=== PATIENT | male | born 1960 | race Caucasian/White ===

== ENCOUNTER 2018-10-08 16:45 | Observation (INO) ==
[2018-10-08] MEDS ORDERED: NS 1,000 ML ONE (16:57)
[2018-10-08] MEDS ORDERED: ASPIRIN ONE (16:57)
[2018-10-08] MEDS ORDERED: NS 1,000 ML IV ONE (17:07)
[2018-10-08] MEDS ORDERED: ASPIRIN PO ONE (17:07)
[2018-10-08 17:27] LABS: BASO# 0.03 X1000 (0.0-0.2); BASO% 0.3 % (0.0-0.8); EOS# 0.15 X1000 (0.0-0.7); EOS% 1.3 % (0.0-10.0); HEMATOCRIT 50.1 % (42.0-52.0); HEMOGLOBIN 17.7 g/dL (14.0-18.0); IMM GRAN# 0.08 X1000 (0.0-0.04); IMM GRAN% 0.7 % (0.0-0.5); LYMPH# 2.71 X1000 (1.2-3.4); LYMPH% 23.9 % (20.5-51.1); MCH 31.9 PG (27-31); MCHC 35.3 g/dL (33-37); MCV 90.3 FL (81-99); MONO# 0.83 X1000 (0.11-0.59); MONO% 7.3 % (1.7-9.3); MPV 11.1 FL (7.4-10.4); NEUT# 7.53 X1000 (1.4-6.5); NEUT% 66.5 % (42.2-75.2); PLT 176 X1000 (130-400); RBC 5.55 XMIL (4.7-6.1); RDW 13.3 % (11.5-14.5); WBC 11.33 X1000 (4.8-10.8)
[2018-10-08 17:31] LABS: INR 0.91; PROTIME 12.7 Seconds (11.0-16.0); PTT 30.7 Seconds (22.3-41.8)
--- NOTE | 2018-10-08 17:32 | Diag Imaging Result Doc PS360 ---
EXAM: CT HEAD W/O CONTRAST 10/08/2018 HISTORY: CVA TECHNIQUE: This exam was performed using automated exposure control, adjustment of mA or kV according to patient size, and/or use of iterative reconstruction technique. COMMENT: There are no previous studies available for comparison. There is a lacune in the anterior left putamen and another in the right basal ganglia. There are patchy ill-defined lucencies in the periventricular white matter adjacent to both frontal horns. There is no evidence of bleed mass effect or abnormal extra-axial fluid collection. IMPRESSION: No evidence of acute intracranial disease. Electronically signed by Jhonny Lara 10/08/2018 5:29 PM
[2018-10-08 17:35] LABS: AGAP 13; BUN 16 mg/dL (8-22); CALCIUM 9.1 mg/dL (8.8-10.2); CHLORIDE 102 mmol/L (98-107); COSMO 277; CREATININE 0.9 mg/dL (0.7-1.2); ESTIMATED GFR > 60; GLUCOSE 130 mg/dL (70-104); MAGNESIUM 1.4 mg/dL (1.5-2.7); POTASSIUM 4.3 mmol/L (3.5-5.1); SODIUM 137 mmol/L (136-145); TCO2 22 mmol/L (25-35)
[2018-10-08] MEDS ORDERED: NITROGLYCERIN TOP ONE (18:32)
[2018-10-08] MEDS ORDERED: TYLENOL PO ONE (18:33)
--- NOTE | 2018-10-08 18:40 | PROVIDER DOCUMENTATION ---
This chart was entered by Wanda Ash Scribe, acting as scribe for Sawyer Bradford MD. HPI-Neurological Disorder - General Chief Complaint: Stroke-Like Symptoms Stated Complaint: SOB, CANT TALK Time Seen by Provider: 10/08/18 17:05 Source: patient, family () Allergies/Adverse Reactions: Patient Allergies Allergy/AdvReac Type Severity Reaction Status Date / Time Penicillins Allergy RASH Verified 06/09/14 18:04 Home Medications: Home Medication List Medication Instructions Recorded Confirmed Last Taken Type Acetaminophen with Codeine 1 each PO Q6H PRN PRN #20 tablet 06/09/14 Unknown Rx [Tylenol with Codeine #3 Tablet] Aspirin 81 mg PO DAILY 06/09/14 06/09/14 06/09/14 History Atorvastatin Calcium [Lipitor] 80 mg PO DAILY 06/09/14 06/09/14 06/09/14 History Canagliflozin [Invokana] 100 mg PO DAILY 06/09/14 06/09/14 06/09/14 History Cephalexin [Keflex] 500 mg PO 4XDAY #40 capsule 06/09/14 Unknown Rx Fenofibrate Nanocrystallized 145 mg PO DAILY 06/09/14 06/09/14 06/09/14 History [Tricor] Nebivolol HCl [Bystolic] 10 mg PO DAILY 06/09/14 06/09/14 06/09/14 History Sulfamethoxazole/Tmp D.s. [Septra 1 each PO BID #20 tablet 06/09/14 Unknown Rx Ds] - History of Present Illness-Neuro Nature of Presenting Problem: 58 yom presents to ED c/o right arm weakness, slurred speech, head feels 'funny, SOB and can't concentrate since about 3:30pm. Pt is at bedside and states pt came in from outside and said he felt funny and then the symptoms started. Pt has a hx of DM, HTN, VA, RA, COPD and Lupus. Dr. Ramirez is pt PCP. Review of Systems - Adult - REVIEW OF SYSTEMS - ADULT Constitutional: reports: see HPI, fatique. denies: chills, fever Eyes: reports: no symptoms reported Ears, Nose, Mouth & Throat: reports: no symptoms reported Cardiovascular: reports: no symptoms reported Respiratory: reports: see HPI, shortness of breath. denies: cough Gastrointestinal: reports: no symptoms reported Genitourinary: reports: no symptoms reported Musculoskeletal: reports: no symptoms reported Integumentary: reports: no symptoms reported Neurological: reports: see HPI, dizziness/vertigo, headache/migraines, numbness, slurred speech, tremors Psychiatric: reports: no symptoms reported Endocrine: reports: no symptoms reported Hematologic/Lymphatic: reports: no symptoms reported Allergic/Immunologic: reports: no symptoms reported All Other Systems: Reviewed and Negative Past History - Adult - PAST MEDICAL HISTORY-ADULT Review of Records: reports: Nursing Assessment Review, Medications Reviewed, Social history reviewed & non-contributory. Major Childhood Illnesses: reports: denies history Cardiovascular: reports: HTN, VA Respiratory: reports: COPD Gastrointestinal: reports: denies history Obstetrical/Gynecological: reports: denies history Genitourinary: reports: denies history Musculoskeletal: reports: denies history Neurological: reports: denies history Endocrine/Immune: reports: Diabetes Other Conditions: reports: denies history - PRIOR SURGERIES/PROCEDURES Surgical/Procedure History: reports: cardiac stent, joint replacement - IMMUNIZATION STATUS Childhood Immunizations: See Nurse Assessment Flu Vaccine: See Nurse Assessment - FAMILY HISTORY Family History: reviewed, not pertinent Physical Exam- Neurological - Physical Exam-Neuro Initial Vital Signs Reviewed: Yes General Appearance: alert, mild distress Eye Exam: bilateral eye: normal inspection, PERRL, EOMI HENMT: normocephalic/atraumatic, moist mucous membranes, normal ENT inspection. negative: angioedema Head Injury: no evidence of injury. negative: active bleeding Neck: non-tender, full range of motion, supple, normal inspection. negative: Brudzinski's sign, carotid bruit Respiratory: chest non-tender, lungs clear, normal breath sounds, no pleuratic chest pain, no respiratory distress, no accessory muscle use. negative: crackles, rales, rhonchi Cardiovascular: normal peripheral pulses, regular rate, rhythm, no edema, no gallop, no JVD, no murmur. negative: bradycardia, tachycardia Abdominal Exam: normal bowel sounds, non tender, soft, no organomegaly, no pulsatile mass. negative: rigid, rebound, tenderness Lymphatic: no adenopathy. negative: striations Extremity: normal range of motion, normal inspection. negative: deformity Neurologic: surveillance system monitor II-XII nml as tested, grossly normal, motor weakness Integumentary: normal color, normal turgor, warm/dry. negative: diaphoresis, jaundice Psych/Mental Status: normal mood/affect, other (ORINTED TO PERSON AND PLACE BUT NOT TIME INITALLY, LETHARGIC RESPONSE TO QUESTIONS BUT MINIMAL SLURRED SPEECH.) Progress - PLAN OF CARE/RESULTS Progress/Plan/Lab Results: Vital Signs - 8 hr 10/08/18 16:53 Pulse Rate 82 Respiratory Rate 18 Blood Pressure 202/116 O2 Sat by Pulse Oximetry 93 L Laboratory Results - last 24 hr 10/08/18 10/08/18 10/08/18 16:54 16:56 16:56 WBC 11.33 H RBC 5.55 Hgb 17.7 Hct 50.1 MCV 90.3 MCH 31.9 H MCHC 35.3 RDW Std Deviation 13.3 Plt Count 176 MPV 11.1 H Immature Gran % (Auto) 0.7 H Neut % (Auto) 66.5 Lymph % (Auto) 23.9 Monroe % (Auto) 7.3 Eos % (Auto) 1.3 Baso % (Auto) 0.3 Immature Gran # (Auto) 0.08 H Neut # (Auto) 7.53 H Lymph # (Auto) 2.71 Monroe # (Auto) 0.83 H Eos # (Auto) 0.15 Baso # (Auto) 0.03 PT INR PTT (Actin FS) Sodium 137 Potassium 4.3 Chloride 102 Carbon Dioxide 22 L Anion Gap 13 BUN 16 Creatinine 0.9 Estimated GFR/1.73 m2 > 60 BUN/Creatinine Ratio 18 Glucose 130 H POC Glucose 119 H Calculated Osmolality 277 Calcium 9.1 Magnesium 1.4 L 10/08/18 16:56 WBC RBC Hgb Hct MCV MCH MCHC RDW Std Deviation Plt Count MPV Immature Gran % (Auto) Neut % (Auto) Lymph % (Auto) Monroe % (Auto) Eos % (Auto) Baso % (Auto) Immature Gran # (Auto) Neut # (Auto) Lymph # (Auto) Monroe # (Auto) Eos # (Auto) Baso # (Auto) PT 12.7 INR 0.91 PTT (Actin FS) 30.7 Sodium Potassium Chloride Carbon Dioxide Anion Gap BUN Creatinine Estimated GFR/1.73 m2 BUN/Creatinine Ratio Glucose POC Glucose Calculated Osmolality Calcium Magnesium Orders Category Date Time Status Cardiac Monitoring DIRECTED Care 10/08/18 17:05 Active Finger Stick Blood Sugar (ED) DIRECTED Care 10/08/18 17:05 Active Saline Loc NOW Care 10/08/18 17:[address] HEAD W/O CONTRAST [CT] Stat Exams 10/08/18 17:06 Completed BMP [BASIC METABOLIC PANEL] [CHEM] Stat Lab 10/08/18 16:56 Completed CBC WITH ELECTRONIC DIFF [HEME] Stat Lab 10/08/18 16:56 Completed LACTATE, PLASMA [CHEM] Stat Lab 10/08/18 18:05 Received MAGNESIUM [CHEM] Stat Lab 10/08/18 16:56 Completed PROTIME WITH INR [COAG] Stat Lab 10/08/18 16:56 Completed PTT [COAG] Stat Lab 10/08/18 16:[address] W/POSS RFLX CULT [URINALYSIS] Stat Lab 10/08/18 18:32 Ordered 0.9% Sodium Chloride Inj [Ns] 1,000 ml Med 10/08/18 16:57 Discontinued .ROUTE As directed 0.9% Sodium Chloride Inj [Ns] 1,000 ml Med 10/08/18 17:07 Discontinued IV 999 mls/hr Acetaminophen [Tylenol] Med 10/08/18 18:33 Once 650 mg PO NOW ONE Aspirin Med 10/08/18 16:57 Discontinued 325 mg .ROUTE .STK-MED ONE Aspirin Med 10/08/18 17:07 Discontinued 325 mg PO NOW ONE Nitroglycerin Med 10/08/18 18:32 Once 1 inch TOP NOW ONE EKG [EKG] Stat Ther 10/08/18 17:06 Ordered Result Diagrams: 10/08/18 16:56 10/08/18 16:56 - REASSESSMENT Reassessment #2 Time Reassessed: 18:33 Status: improving (NOW NOW DEFICITS, NO LURRED SPEECH, GOOD STRENGTH RIGHT HAND/ARM, SL H/S BP UP; 187/118: ORDER NITRO, TYLENOL) Reassessment #3 Status: improving (ON ARRIVAL AND THRYU STAY, NOT A tPA CANDITATE STEADILY IMPROVING OF MILD NEURO DEFICIT.) - EKG 1 Time of EKG reading by physician:: 17:05 EKG Read and Signed by:: Sawyer Bradford EKG Interpretation (*Must complete 3 of following elements*): Abnormal (possible left atrial enlargement, cannot rule out inferior infarct, age undetermined) QRS: normal ST Wave: normal - CONSULTS/PCP/HOSPITALIST Notification #1 *Consult/PCP/Hospitalist*: DR OLVERA Time Discussed: 17:30 Consult Disposition: Admit Departure - Departure Date of Disposition Decision: 10/08/18 Time of Disposition Decision: 18:34 DIAGNOSIS: TIA (transient ischemic attack), Hypertension Disposition: ADMITTED INPATIENT 09 Certified Medical Emergency: Emergent Condition: Stable Referrals and Follow-Ups: Cj Olvera MD [Primary Care Provider] - - Critical Care Note This patient required my direct & personal management of CC.: No Attestation - Physician/ GEMA Attestation Patient care was provided by Advanced Practice Provider:: No The physician spent face to face time with patient:: Yes Advanced Practice Provider documentation review:: Supervising physician onsite and consulted in the evaluation and care of this patient. The physician did have a face to face encounter with the patient. - NIH Stroke Scale NIH Type: Initial Evaluation Level of Consciousness: 0-Alert LOC Questions (ask month and age): 0-Answers Both Correctly LOC Commands (ask to open & close eyes;make a fist, let go): 0-Obeys Both Correctly Best Gaze (horizontal eye movement): 0-Normal Visual (use finger movement, counting or visual threat): 0-No Visual Loss Facial Palsy (show teeth or raise eyebrows & close eyes tght: 0-Symmetrical Movement Motor Function-left arm: 0-Normal Motor Function-right arm: 1-Drift Motor Function-left le-Normal Motor Function-right le-Normal Limb Ataxia([id number], or heel to timmons): 0-No Ataxia Sensory(pin prick to face,arms,trunk,legs-compare side/side): 0-No Ataxia Best Language(name item/read sentence.Ex-Down to Earth): 0-No Aphasia Dysarthria(Pt read words or say words Ex.Mama,Tip-Top,Thanks: 1-Mild-Mod Slurr ing Words Extinction and Inattention: 1-Partial Neglect NIH Total Score: 3 This chart was documented by the indicated scribe, (Wanda Ash Scribe) and accurately reflects the services I performed and decisions made by me, Sawyer Bradford MD, as attested by the provider's signature.
[2018-10-08 19:03] LABS: BILIRUBIN URINE NEGATIVE (NEGATIVE); BLOOD URINE NEGATIVE (NEGATIVE); CLARITY CLEAR (CLEAR); COLOR YELLOW; KETONE URINE NEGATIVE (NEGATIVE); LEUKOCYTES URINE NEGATIVE (NEGATIVE); NITRITE URINE NEGATIVE (NEGATIVE); PROTEIN URINE 2+(100 mg/dL) mg/dL (NEGATIVE); UROBILINOGEN URINE NORMAL
--- NOTE | 2018-10-08 19:10 | EKG Report ---
Test Performed on : 10/08/2018 5:03:10 PM Test Reason : CVA Blood Pressure : / mmHG Vent. Rate : 079 BPM Atrial Rate : 079 BPM P-R Int : 156 ms QRS Dur : 102 ms QT Int : 390 ms P-R-T Axes : 045 045 125 degrees QTc Int : 447 ms Normal sinus rhythm. Possible Left atrial enlargement Cannot rule out Inferior infarct , age undetermined Abnormal ECG No previous ECGs available Unconfirmed Result
[2018-10-08 19:11] LABS: URINE SOURCE CLEAN CATCH
[2018-10-08 19:12] LABS: URINE EPITHELIAL CELLS <10 /HPF (<10); URINE RBC <10 /HPF (<10); URINE WBC <10 /HPF (<10)
[2018-10-08 19:13] LABS: URINE BACTERIA NEGATIVE /HFP; URINE CAST NONE SEEN /LPF; URINE CRYSTAL NONE SEEN /HPF; URINE YEAST NONE SEEN /HPF
[2018-10-08] MEDS ORDERED: TYLENOL PO PRN (22:26)
[2018-10-08] MEDS ORDERED: ZOFRAN IV PRN (22:26)
[2018-10-08] MEDS ORDERED: MAGNESIUM SULFATE 2 GM/S.W.I. 2 GM/50 ML IVPB IV ONE (22:27)
[2018-10-08] MEDS: NS 1,000 ML IV SCH (23:02)
[2018-10-09] MEDS ORDERED: LABETALOL ONE (02:08)
[2018-10-09] MEDS ORDERED: LABETALOL IV ONE (02:09)
[2018-10-09] MEDS: NS 1,000 ML IV SCH (05:52)
[2018-10-09] MEDS ORDERED: DIPHENHYDRAMINE CIT PO PRN (06:21)
[2018-10-09] MEDS ORDERED: IBUPROFEN PO PRN (06:21)
[2018-10-09] MEDS ORDERED: BENADRYL PO PRN (06:26)
[2018-10-09] MEDS ORDERED: MOTRIN PO PRN (06:26)
[2018-10-09] MEDS ORDERED: PROTONIX PO SCH (07:00)
[2018-10-09 07:17] LABS: HEMATOCRIT 48.3 % (42.0-52.0); HEMOGLOBIN 16.5 g/dL (14.0-18.0); MCH 31.1 PG (27-31); MCHC 34.2 g/dL (33-37); MCV 91.1 FL (81-99); MPV 11.4 FL (7.4-10.4); RBC 5.3 XMIL (4.7-6.1); RDW 13.2 % (11.5-14.5); WBC 8.54 X1000 (4.8-10.8)
[2018-10-09] MEDS: HUMALOG (PARKWAY) SUBQ SCH ×3 (08:15→18:52)
[2018-10-09 08:19] LABS: AGAP 13; ALBUMIN 3.7 g/dL (3.5-5.0); ALKALINE PHOSPHATASE 92 U/L (32-122); BUN 11 mg/dL (8-22); CALCIUM 8.8 mg/dL (8.8-10.2); CHLORIDE 102 mmol/L (98-107); COSMO 278; CREATININE 0.8 mg/dL (0.7-1.2); ESTIMATED GFR > 60; GLUCOSE 115 mg/dL (70-104); GOT 13 U/L (10-34); GPT 9 U/L (10-44); POTASSIUM 3.5 mmol/L (3.5-5.1); SODIUM 139 mmol/L (136-145); TCO2 24 mmol/L (25-35); TOTAL PROTEIN 6.9 g/dL (6.3-8.3)
[2018-10-09 08:30] LABS: CHOLESTEROL 274 mg/dL (0-200); HDL 35 mg/dL (35-55); LDL 179 mg/dL; TRIGLYCERIDES 301 mg/dL (39-160); VLDL 60 mg/dL
[2018-10-09] MEDS ORDERED: NON-FORMULARY MED PO SCH (09:00)
[2018-10-09] MEDS ORDERED: NON-FORMULARY MED (Dapagliflozin Propanediol [Farxiga] 10 MG) PO SCH (09:00)
[2018-10-09] MEDS ORDERED: NORVASC PO SCH (09:00)
[2018-10-09] MEDS ORDERED: PLAVIX PO SCH (09:00)
[2018-10-09] MEDS ORDERED: ASPIRIN PO SCH (09:00)
[2018-10-09] MEDS ORDERED: MONOPRIL PO SCH (09:00)
[2018-10-09] MEDS: NOVOLOG MIX 70/30 (PARKWAY) SUBQ SCH ×2 (09:24→16:24)
[2018-10-09 13:40] VITALS: BP 179/91
--- NOTE | 2018-10-09 15:50 | HISTORY AND PHYSICAL ---
CHIEF COMPLAINT: Right arm weakness and slurred speech. HISTORY OF PRESENT ILLNESS: This is a 58-year-old gentleman who came to the emergency room complaining of right arm weakness, slurred speech, and "funny feeling in head and can't concentrate." It started about an hour and a half prior to coming to the emergency room. He complained of some accompanying dizziness as well as a headache. He denied any syncope, any chest pain, palpitations. Symptoms did resolve while in the emergency room and have not recurred. PAST MEDICAL HISTORY: 1. CAD status post 2 stents in 2009. 2. Chronic obstructive pulmonary disease. 3. Diabetes mellitus, type 2. 4. Hyperlipidemia. 5. Hypertension. 6. Lupus. 7. Rheumatoid arthritis. PAST SURGICAL HISTORY: Total knee replacement. SOCIAL HISTORY: He smokes about 2 packs a day. He denies alcohol or illicit drug use. He is and lives with his . ALLERGIES: Penicillin which causes a rash. HOME MEDICATIONS: 1. Aspirin 81 mg p.o. daily. 2. Plavix 75 mg p.o. daily. 3. Farxiga 10 mg p.o. daily. 4. Monopril 20 mg p.o. daily. 5. Advil P.M. 1 p.o. at bedtime as needed for sleep. 6. NovoLog 70/30 of 20 units subcutaneous b.i.d. 7. Lansoprazole 30 mg p.o. daily. 8. Meloxicam 7.5 p.o. at bedtime. 9. Ozempic 0.5 subcutaneous every 7 days. REVIEW OF SYSTEMS: Discussed with patient with pertinent positives stated in the HPI. He denied any syncope, any chest pain, any palpitations, any nausea/vomiting, diarrhea, constipation, black or bloody vomitus or stools, hematuria, dysuria, frequency, urgency. PHYSICAL EXAMINATION: GENERAL: This is a 58-year-old gentleman who is sitting up in the bed in no distress. VITAL SIGNS: Blood pressure is 188/87 with a heart rate of 77, respirations are 18, temperature is 98.4 degrees oral with room air saturations 97%. EYES: Pupils are equal, round, and react to light. EOMs are intact. Sclerae are anicteric. HENT: Head is normocephalic, atraumatic. Mucous membranes are moist. NECK: Supple with trachea midline. CARDIOVASCULAR: Regular rate and rhythm. S1 and S2 appreciated. EXTREMITIES: He has no lower extremity edema. Calves are nontender and peripheral pulses are palpable x4 extremities. PULMONARY: Breath sounds are clear with no increased work of breathing noted. Chest rises and falls symmetric with respiration. Chest wall is nontender to palpation. GASTROINTESTINAL: Abdomen is soft, nontender, nondistended with bowel sounds in all 4 quadrants. GENITOURINARY: He has no CVA or suprapubic tenderness. NEUROLOGIC: He is alert and oriented x3. Pupils equal, round, and react to light. Forehead is spared. He has no facial droop. He has equal nasal flaring. No tongue or uvula deviation. Shoulder shrug is equal. He has no plantar drift. Gait is steady. DIAGNOSTICS: 1. WBC is 11.3 with hemoglobin 17, hematocrit 50.1, and platelets of 176,000. Sodium is 137, potassium 4.3, BUN 16, creatinine 0.9 with a glucose of 130, magnesium is 1.4. TSH is 3.86. Urinalysis is essentially negative. 2. CT of the head reveals no evidence of acute intracranial disease. 3. EKG reveals sinus rhythm at a rate of 79. ASSESSMENT AND PLAN: 1. Transient ischemic attack. 2. Diabetes mellitus, type 2. 3. Hypertension. 4. Chronic obstructive pulmonary disease. 5. History of coronary artery disease. 6. Hyperlipidemia. 7. Tobacco use and abuse. PLAN: The patient has been admitted to the medical-surgical floor and placed on telemetry, which will continue. We will perform neurological checks. We will check fingerstick blood sugars with sliding scale insulin. We will identify his home medications, and once verified, we will continue these as is appropriate. He will be placed on a diabetic diet. Further treatments pending hospital course. Dictated by ALICE Glass for Cj Olvera MD cc: ALICE Glass MD
[2018-10-09] MEDS ORDERED: LIPITOR PO SCH (21:00)
--- NOTE | 2018-10-09 22:07 | HISTORY AND PHYSICAL ---
HISTORY OF PRESENT ILLNESS: The patient was seen and examined, presented to the ER with strokelike symptoms and was having slurred speech. This has completely resolved. He has had no focal numbness or tingling. Does note that his blood pressure was elevated when he arrived to the ER, but has been better since then. ALLERGIES: Penicillin, Lipitor causing muscle aches. MEDICATIONS: Tylenol No. 3, Invokana and Bystolic. REVIEW OF SYSTEMS: The patient denies any headaches, blurred vision or change in his vision. He does note that he had some weakness, right-sided, and slurred speech, head feeling funny, short of breath. Symptoms have completely resolved. Denies any chest pain, palpitations, fevers or chills. Denies dysuria, frequency, urgency, hesitancy, polyuria or polydipsia. PAST MEDICAL HISTORY: Hypertension, known coronary artery disease, COPD, diabetes. He has had cardiac stenting. FAMILY HISTORY: Noncontributory. SOCIAL HISTORY: He is . Continues to smoke but has continued to wean. Denies any illicit substances. PHYSICAL EXAMINATION: VITAL SIGNS: He is afebrile, pulse 72, respiratory rate 18. BP initially 202/116, currently 130/70. Saturation 93% on room air. GENERAL: The patient is awake, alert, currently in no respiratory distress. HEENT: Normocephalic. NECK: Supple. CARDIOVASCULAR: Regular rate. CHEST: Clear. ABDOMEN: Soft. ASSESSMENT: 1. Transient ischemic attack, appears resolved, although this very likely may be encephalopathy secondary to hypertension. 2. Hypertension. 3. Diabetes, with much better home control. 4. High cholesterol. 5. Others. The patient presented to the hospital after having had symptoms already. He was outside the window for tissue plasminogen activator. Thankfully, his symptoms completely resolved. On discharge he is awake, alert. He is in no distress. INCOMPLETE REPORT -- DICTATION ENDS HERE. cc: Cj Olvera MD
--- NOTE | 2018-10-10 05:50 | DISCHARGE SUMMARY ---
ADMISSION DATE: 10/09/2018 DISCHARGE DATE: 10/09/2018 DIAGNOSES: 1. Transient ischemic attack. 2. Diabetes mellitus type 2. 3. Hypertension. 4. Chronic obstructive pulmonary disease. 5. History of coronary artery disease. 6. Hyperlipidemia. 7. Tobacco use. DIAGNOSTICS: CT of the head revealed no evidence of acute intracranial disease. HOSPITAL COURSE: Mr. Ivan presented to the emergency room after having onset of right arm weakness, slurred speech, and "feeling funny in the head and can't concentrate." He did have some accompanying dizziness and headache. Symptoms resolved while in the emergency room and thankfully they did not recur. His initial blood pressures were in the 202/116 to 199/108 range. We continued his home medication, doubling his Monopril from 20 mg to 40 mg and blood pressures were in the 179/90 range. We did discuss taking a statin with the patient. He refuses stating that he has tried it before and he has not tolerated them in the past. DISCHARGE EXAMINATION: Discharge vital signs: Blood pressure is 179/90 with a heart rate of 80, respirations 20, temperature is 98.3 degrees with room air sats 97-100%. Cardiovascular: Regular rate and rhythm. S1 and S2 appreciated. Pulmonary: Breath sounds are clear with no increased work of breathing noted. Gastrointestinal: Abdomen is soft, nontender, nondistended with bowel sounds in all 4 quadrants. Neurologic: He is alert and oriented x3 with cranial nerves 2-12 grossly intact. DISCHARGE MEDICATIONS: 1. Tylenol 650 p.o. q.6 hours p.r.n. 2. Norvasc 5 mg p.o. daily. 3. Ozempic 0.5 subcutaneous q.7 days. 4. Novolin 70/30 insulin 20 units subcutaneous b.i.d. 5. Monopril 20 mg p.o. daily. 6. Meloxicam 7.5 p.o. at bedtime. 7. Lansoprazole 30 mg p.o. daily. 8. Plavix 75 mg p.o. daily. 9. Aspirin 81 mg p.o. daily. 10. Farxiga 10 mg p.o. daily. 11. Advil PM 1 cap at bedtime p.r.n. FOLLOWUP: He needs to follow up with Dr. Olvera, his primary care provider, in 1 to 2 weeks. He needs to call in the morning to schedule an appointment. He has been instructed to call to be seen sooner or return to the emergency room for any dizziness, syncope, chest pain, palpitations, any nausea, vomiting, diarrhea, constipation, black or bloody vomitus or stools, any shortness of breath, cough, fever, chills, any further episodes of weakness or for any questions or concerns that he may have. He is being discharged home in stable condition with family members. TIME SPENT: This is a greater than 30 minute discharge. Dictated by ALICE Glass for Cj Olvera MD cc: ALICE Glass MD
--- NOTE | 2018-10-10 05:51 | DISCHARGE SUMMARY ---
ADMISSION DATE: 10/08/2018 DISCHARGE DATE: 10/09/2018 DISCHARGE DIAGNOSIS: 1. Transient ischemic attack versus encephalopathy due to hypertension poorly controlled. 2. Poorly controlled hypertension. 3. Diabetes. 4. High cholesterol. 5. Others. PLAN: Overall, the patient states he is back to normal. He is improving. She will bring in a list of his home medications. Thankfully, he had an uneventful hospital course. Discussed with patient the importance of controlling his blood sugar as well as blood pressures. cc: Cj Olvera MD
[2018-10-11] MEDS ORDERED: PATIENT'S OWN MED SUBQ SCH (09:00)
== END 2018-10-09 19:42 | disposition home or self-care (01) | DRG 78 ==
LOC: P.ED 16:45 → INTOOBSV 10-09 01:25 → P.MEDSURG 10-09 01:25
PROVIDERS: ATTEND Family Medicine
CPT/HCPCS: 70450; 80048; 80053; 80061; 81001; 82948; 83605; 83735; 84443; 85025; 85027; 85610; 85730; 93005; 96361; 96365; 96375; 99285; A9270; J1815; J3475; J7030; XXXXX